=== PATIENT | female | born 1975 | race Caucasian/White ===

== ENCOUNTER → 2023-07-24 17:49 | Outpatient (REF) | payer OTHER, SELFPAY | LOC: WDC 17:49 | PROVIDERS: ATTENDING PHYSICIAN Nurse Practitioner Family; FAMILY PHYSICIAN Physician Assistant Medical | DX: Z12.31 Encounter for screening mammogram for malignant neoplasm of breast (principal) | CPT/HCPCS: 77063; 77067 ==

== ENCOUNTER → 2024-05-10 17:11 | Outpatient (REF) | payer OTHER, SELFPAY | LOC: RAD 17:11 | PROVIDERS: ATTENDING PHYSICIAN Nurse Practitioner Family; FAMILY PHYSICIAN Physician Assistant Medical; REFERRING PHYSICIAN Nurse Practitioner Family | DX: D25.9 Leiomyoma of uterus, unspecified (principal); M79.632 Pain in left forearm; M25.522 Pain in left elbow | CPT/HCPCS: 73080; 73090; 76830; 76856 ==

== ENCOUNTER → 2024-07-29 17:48 | Outpatient (REF) | payer OTHER, SELFPAY | LOC: WDC 17:48 | PROVIDERS: ATTENDING PHYSICIAN Obstetrics & Gynecology; FAMILY PHYSICIAN Physician Assistant Medical | DX: Z12.31 Encounter for screening mammogram for malignant neoplasm of breast (principal) | CPT/HCPCS: 77063; 77067 ==

== ENCOUNTER → 2024-08-30 15:30 | Outpatient (REF) | payer OTHER, SELFPAY | LOC: RAD 15:30 | PROVIDERS: ATTENDING PHYSICIAN Nurse Practitioner Family; FAMILY PHYSICIAN Physician Assistant Medical | DX: N83.292 Other ovarian cyst, left side (principal) | CPT/HCPCS: 76830; 76856 ==

== ENCOUNTER 2024-11-30 06:16 | Day surgery (SDC) | payer OTHER, SELFPAY ==
[2024-11-30] VITALS (7 sets, daily range): BP systolic 106–121; BP diastolic 62–79; BMI 25.0
[2024-11-30] MEDS: TYLENOL 1000 MG PO (12:26)
[2024-11-30] MEDS: NORMOSOL-R/PLASMALYTE-A 1000 IV (12:36)
[2024-11-30 12:48] LABS: Hematocrit 39.1 % (37.0-47.0); Hemoglobin 12.4 g/dL (12.0-16.0)
== END 2024-11-30 16:50 | disposition home or self-care (01) ==
LOC: SDS 06:16
PROVIDERS: ATTENDING PHYSICIAN Obstetrics & Gynecology
DX: D25.9 Leiomyoma of uterus, unspecified (principal); N80.03 Adenomyosis of the uterus; N93.9 Abnormal uterine and vaginal bleeding, unspecified; Z30.432 Encounter for removal of intrauterine contraceptive device
CPT/HCPCS: 58561; 85014; 85018; 86850; 86900; 86901; 88305

== ENCOUNTER → 2025-02-18 12:44 | Outpatient (REF) | payer OTHER, SELFPAY | LOC: WDC 12:44 | PROVIDERS: ATTENDING PHYSICIAN Nurse Practitioner Family; FAMILY PHYSICIAN Physician Assistant Medical | DX: Z12.31 Encounter for screening mammogram for malignant neoplasm of breast (principal) | CPT/HCPCS: 76641 ==